=== PATIENT | female | born 1995 | race Caucasian/White ===

== ENCOUNTER → 2018-12-25 15:12 | Outpatient (CLI) | payer OTHER, SELFPAY ==
[2018-12-25 16:10] LABS: Add Manual Diff / Slide Review NO; Basophils Absolute Auto 0 /uL (0-100); Basophils Percent Auto 0.4 % (0-2); Eosinophils Absolute Auto 100 /uL (0-450); Eosinophils Percent Auto 0.8 % (2-4); Hematocrit 36.8 % (36-46); Hemoglobin 12.6 g/dL (12.0-16.0); Lymphocytes Absolute Auto 2000 /uL (1100-4500); Lymphocytes Percent Auto 19.3 % (25-40); Mean Corpuscular HGB Conc 34.2 % (30-36); Mean Corpuscular Hemoglobin 30.6 PG (26-34); Mean Corpuscular Volume 89.6 fL (80-100); Monocytes Absolute Auto 600 /uL (0-900); Monocytes Percent Auto 5.8 % (3-14); Neutrophils Absolute Auto 7600 /uL (1500-7000); Neutrophils Percent Auto 73.7 % (50-75); Platelet Count 255 X10^3/uL (150-400); Red Cell Distribution Width 12.7 % (11.6-14.8); White Blood Cell Count 10.3 X10^3/uL (4.5-11.0)
[2018-12-25 16:12] LABS: Appearance Urine UA CLEAR; Bilirubin Urine UA NEGATIVE (NEGATIVE); Color Urine UA YELLOW; Glucose Urine UA NEGATIVE (Negative); Ketones Urine UA NEGATIVE (NEGATIVE); Leukocyte Esterase Urine UA 1+ (NEGATIVE); Nitrite Urine UA NEGATIVE (Negative); Occult Blood Urine UA NEGATIVE (Negative); Protein Urine UA NEGATIVE (Negative); Urobilinogen Urine UA 0.2 E.U./dL (0.2)
[2018-12-25 16:31] LABS: Bacteria Urine None Seen; RBC Urine None Seen (0-5/HPF)
[2018-12-25 16:43] LABS: Culture Indicated Urine Specimen Cultured; Squamous Epithelial Cell Urine None Seen (0-5/HPF); WBC Urine 1-5/HPF (0-5/HPF)
[2018-12-25 19:06] LABS: HIV 1 and 2 Antibody NEGATIVE (NEGATIVE); Hep C Virus Ab w/Reflex Quant NEGATIVE s/c (NEGATIVE); Hepatitis B Surface Antigen NEGATIVE s/c (NEGATIVE)
[2018-12-28 23:04] LABS: RPR Screen Nonreactive (Nonreactive)
== END ==
PROVIDERS: PCP Family Medicine; Visit Provider Family Medicine
DX: Z34.91 Encounter for supervision of normal pregnancy, unspecified, first trimester (principal)
CPT/HCPCS: 36415; 80055; 81003; 81015; 86703; 86787; 86803; 86850; 86900; 86901; 87086

== ENCOUNTER → 2019-03-21 07:50 | Outpatient (CLI) | payer OTHER, SELFPAY ==
--- NOTE | 2019-03-21 07:52 | DI.US.S_ITS ---
PROCEDURE: US OB >= 14 WEEKS FETUS INDICATIONS: ANATOMIC SURVEY OUTSIDE/PRIOR DATING DATA: Last menstrual period (LMP): Unknown. LMP-based estimated date of delivery (PILY): N./A.. First dating scan (date and location): 03/21/19. Estimated date of delivery (PILY) from first dating scan: 08/05/19. TECHNIQUE: Real-time scanning was performed of the fetus, with image documentation and biometric measurements. Endovaginal scanning: No COMPARISON: None. FINDINGS: General: A single living intrauterine gestation is present. Presentation: Vertex. Placenta: Placental position is anterior, without previa. Amniotic fluid index: 11.1 cm, normal range is 5-24 cm. heart rate: 155 beats per minute. Maternal cervical canal: 3.2 cm long. Normal lower limit is 2.5 cm. biometrics: Biparietal diameter: 20 weeks 3 days Head circumference: 20 weeks 3 days Abdominal circumference: 20 weeks 2 days Femur length: 20 weeks 5 days Estimated gestational age from initial scan: not applicable. Composite gestational age from present scan: 20 weeks 3 days Estimated weight and percentile: 356 g Measurement variability for biometric dating: +/- 7 days from 14 weeks to 15 weeks 6 days gestation, +/- 10 days from 16 weeks to 21 weeks 6 days gestation, +/- 2 weeks from 22 weeks to 27 weeks 6 days gestation, +/- 3 weeks for 28 weeks gestation or later. weight reference: 4500 g or EFW >90/95% is considered macrosomia or large for gestational age. EFW <10% is small for gestational age. EFW 5% or less is considered intra-uterine growth restriction. Anatomic survey: Neuro: Ventricles are non-dilated at less than 10 mm. Cisterna magna is normal at 3-11 mm. Cerebellum is normal in size and morphology. Nuchal skin fold: Normal at less than 6 mm between 14-21 weeks gestational age. Face: Nose and lips, facial profile are normal. Spine: No evidence for spina bifida. Heart: 4-chambered heart is present, with normal ventricular outflow tracts. Diaphragm: Diaphragm is intact. Stomach: Left-sided stomach is present. Kidneys: No hydronephrosis. Normal is less than 5 mm in 2nd trimester, less than 7 mm in 3rd trimester. Cord: 3-vessel cord has orthotopic insertion. Bladder: Normal in size. Extremities: All 4 extremities identified. IMPRESSION: 1. Single living IUP redemonstrated with a mean composite gestational age of 20 weeks 3 days corresponding to ultrasound PILY 08/05/19. 2. Normal anatomic survey. Dictated by: Calixto [facility] Interpreted: Praful Mattson MD on 03/21/2019 at 11:35 Approved by: Praful Mattson M.D. on 03/21/2019 at 12:08
== END ==
PROVIDERS: PCP Family Medicine; Visit Provider Family Medicine
DX: Z34.02 Encounter for supervision of normal first pregnancy, second trimester (principal); Z3A.20 20 weeks gestation of pregnancy
CPT/HCPCS: 76811

== ENCOUNTER → 2019-07-16 14:46 | Outpatient (CLI) | payer OTHER, SELFPAY ==
[2019-07-17 16:56] LABS: Strep Grp B PCR NEG for Grp B Strep
== END ==
PROVIDERS: PCP Family Medicine; Visit Provider Family Medicine
DX: Z34.03 Encounter for supervision of normal first pregnancy, third trimester (principal); Z3A.36 36 weeks gestation of pregnancy
CPT/HCPCS: 87653

== ENCOUNTER 2019-07-21 23:59 | Outpatient (CLI) | payer OTHER, SELFPAY ==
--- NOTE | 2019-07-22 10:56 | P.TNLD_ITS ---
Visit Information Visit Information Date of evaluation: 07/22/19 Primary OB Provider: Mike Baker On-call OB Provider: Nancy Leyav Reason for Evaluation: Yes non-stress test Comments/Additional reasons for admission: This patient is a 23yo @38 weeks presenting with decreased movement for 2 days, with leakage of increased mucus. She denies VB or contractions, and denies any other symptoms or complaints. The patient reports movement returned to baseline on presentation to L&D. [facility] Medical History Acne (Chronic) Anxiety (Chronic) Hemorrhoid (Chronic) Surgical History [place] teeth removed (Resolved ~2014) Social History Smoking Status: Never smoker Review of Systems Constitutional Constitutional: Reports system reviewed and no additional complaints, except as documented Cardiovascular Cardiovascular: Reports system reviewed; no additional complaints, except as documented Respiratory Respiratory: Reports system reviewed and no additional complaints, except as documented Gastrointestinal Gastrointestinal: Reports system reviewed and no additional complaints, except as documented Genitourinary Genitourinary: Reports as per HPI Exam Vital Signs (past 8 hours): 126/72, HR 64 Evaluation Evaluation Baseline heart rate: 130 Variability: Average (6-10) monitor accelerations: Present monitor decelerations: Absent Category of Tracing: I Diagnosis, Plan/Disposition Final Diagnosis (1) Decreased movement: Current Visit: No Status: Acute Problem details: This patient presented with decreased movement, and had a cat 1, reassuring NST. She also reported to nursing staff that movement had returned to baseline, and that she could both feel and see movement on observation of her abdomen. Plan/Disposition Plan: Home with antepartum and labor precautions. OB Disposition: home
== END 2019-07-22 00:50 | disposition home or self-care (01) ==
LOC: OB 07-22 08:20
PROVIDERS: PCP Family Medicine; Visit Provider Obstetrics & Gynecology
DX: O36.8130 Decreased fetal movements, third trimester, not applicable or unspecified (principal); Z3A.37 37 weeks gestation of pregnancy
CPT/HCPCS: 59025; G0378; G0379

== ENCOUNTER 2019-07-31 23:55 | Inpatient (IN) | payer OTHER, SELFPAY ==
[2019-08-01] MEDS: LACTATED RINGERS 1,000 ML 999 ML IV (00:50)
[2019-08-01 01:19] LABS: Add Manual Diff / Slide Review NO; Basophils Absolute Auto 100 /uL (0-100); Basophils Percent Auto 0.4 % (0-2); Eosinophils Absolute Auto 0 /uL (0-450); Eosinophils Percent Auto 0.3 % (2-4); Hemoglobin 11.6 g/dL (12.0-16.0); Lymphocytes Absolute Auto 1900 /uL (1100-4500); Lymphocytes Percent Auto 12.4 % (25-40); Mean Corpuscular HGB Conc 35.1 % (30-36); Mean Corpuscular Hemoglobin 30.8 PG (26-34); Mean Corpuscular Volume 87.6 fL (80-100); Monocytes Absolute Auto 1100 /uL (0-900); Neutrophils Absolute Auto 12500 /uL (1500-7000); Neutrophils Percent Auto 79.9 % (50-75); Platelet Count 264 X10^3/uL (150-400); Red Blood Cell Count 3.77 X10^6/uL (4.0-5.2); Red Cell Distribution Width 13.2 % (11.6-14.8); White Blood Cell Count 15.6 X10^3/uL (4.5-11.0)
[2019-08-01] MEDS: LACTATED RINGERS 1,000 ML 125 ML IV ×2 (01:53→09:37)
[2019-08-01] MEDS: OXYTOCIN PREMIX 30 UNIT/500 ML PLAST..BAG IV (06:07)
--- NOTE | 2019-08-01 07:41 | PM.OBHP.1 ---
OB HPI History of Present Condition Chief complaint: EVALUATION OF LABOR : 1 Para: 0 Estimated Date of Delivery: 08/08/19 Estimated Gestational Age (weeks): Thirty Narrative: Rhina Clayton is a 24 year old female G1 para 0 estimated due date of 08/08/2019 presented to labor and delivery floor with uncomfortable contractions at approximately 11:30 p.m.. On arrival to the labor and delivery for. Patient had normal vital signs blood pressure. She was placed on the monitor. She was [place] regularly every 3-4 minutes. Moderate intensity. Cervical exam done by the nurse so she was dilated to 3-4 cm 90% S effaced. Baby had a category 1 tracing. Patient's contractions became more and more uncomfortable and patient requested an epidural which was provided with good anesthetic results. Before she came into the labor and delivery for. Patient had no leaking of fluids no fever. And was feeling well. History of Present care: good care Dating criteria: LMP confirmed by 1st trimester US Ultrasounds: normal 1st trimester US Obstetrical complications: none Medical complications: none Preadmission Labs Blood type: B (+) positive -: Antibody screen: negative, Cystic fibrosis screen: unknown, GBS status: negative, HBsAG: negative, HIV: negative, HSV 1: negative, HSV 2: negative and RPR/VDLR: negative -: Chlamydia screen: not detected and Gonorrhea screen: not detected -: Rubella: immune and Varicella: immune PAP: Normal Integrated screen: Patient declined genetic screening Urine: Within normal limits Narrative: Patient did not do glucose screening Evaluation Evaluation Laboratory results: Laboratory Tests 08/01/19 08/01/19 00:45 00:45 WBC 15.6 H RBC 3.77 L Hgb 11.6 L Hct 33.0 L MCV 87.6 MCH 30.8 MCHC 35.1 RDW 13.2 Plt Count 264 Neut % (Auto) 79.9 H Lymph % (Auto) 12.4 L [place] % (Auto) 7.0 Eos % (Auto) 0.3 L Baso % (Auto) 0.4 Neut # (Auto) 89888 H Lymph # (Auto) 1900 [place] # (Auto) 1100 H Eos # (Auto) 0 Baso # (Auto) 100 Blood Type B Positive Antibody Screen Negative [facility] Medical History Acne (Chronic) Anxiety (Chronic) Hemorrhoid (Chronic) Surgical History [place] teeth removed (Resolved ~2014) Social History Smoking Status: Never smoker Meds Home Medications and Allergies Home Medications Medication Instructions Recorded Confirmed Type prenat.vits,tacho,old-baot-hejkw 1 tab PO DAILY 12/25/18 08/01/19 History Allergies Allergy/AdvReac Type Severity Reaction Status Date / Time No Known Drug Allergies Allergy Verified 08/01/19 01:19 Exam Narrative Exam Narrative: . General: Alert no apparent distress. Affect is appropriate. [place] it is uncomfortable. HEENT: Neck is supple without lymphadenopathy pupils equal round and reactive. Cardio: S1-S2 regular rate and rhythm. Respiratory: Lungs clear to auscultation. Abdomen: Gravid. Extremities: Normal deep tendon reflexes trace edema. Cervical exam 4 cm 90% 0 station mid position amniotomy of clear fluid. IUPC catheter placed without difficulty. [place]: Contractions q.2 minutes heart tones: Category 1 tracing Objective Labs Result Diagrams: 08/01/19 00:45 Labs: Laboratory Results - last 24 hr 08/01/19 08/01/19 00:45 00:45 WBC 15.6 H RBC 3.77 L Hgb 11.6 L Hct 33.0 L MCV 87.6 MCH 30.8 MCHC 35.1 RDW 13.2 Plt Count 264 Neut % (Auto) 79.9 H Lymph % (Auto) 12.4 L [place] % (Auto) 7.0 Eos % (Auto) 0.3 L Baso % (Auto) 0.4 Neut # (Auto) 98900 H Lymph # (Auto) 1900 [place] # (Auto) 1100 H Eos # (Auto) 0 Baso # (Auto) 100 Blood Type B Positive Antibody Screen Negative Assessment and Plan Assessment and Plan Assessment and Plan narrative: 24-year-old G1 para 0 at 39 weeks gestational age in active labor. Patient is doing well. OB admission orders are written for. Patient has IV in place epidural in place hemoglobin hematocrit and platelet count are normal other than mildly elevated white blood cell count. Patient is afebrile. Patient had amniotomy of clear fluid and IUPC placed. Did discuss labor care floor reviewed consents and risks benefits of labor. And routine labor orders were written for. Expectant management.
[2019-08-01] MEDS: ONDANSETRON 4 MG/2 ML INJ (08:45)
--- NOTE | 2019-08-01 12:36 | PM.PROC.1 ---
Procedures Date/Time Date of procedure: 08/01/19 Time of procedure: 12:36 General Procedure description: 24-year-old G1 now para 1 39 + weeks gestational age with routine care without complications comes into the labor and delivery floor and labor. Stage I of labor: Approximately 10 hours. During stage I of labor. Patient had regular contractions. Patient had epidural provided for comfort. Patient on arrival was 3 cm. After epidural and providing comfort. Patient was able to sleep. On re-examination after epidural a number of hours after arrival there was no cervical change despite adequate contractions. She then had amniotomy of clear fluid. She had placement of an IUPC be as well as we started Pitocin and we are having a hard time picking up contractions. After amniotomy patient was 4 cm 90% effaced 0 station. The she had rapid progression from 4 cm to complete over the next hour. She got up to 2 units of Pitocin. Which was stopped about an hour after was started. Due to adequate contractions. Patient's epidural provided good and is static results. Stage II of labor: Approximately 2 hours. Patient did well with pushing and had good progression in descent of the baby's head through the canal from 0 to the complete. As she progressed of heart tones category 1 full category 1 to category 2. She was given oxygen. And mom and baby were making good descent and heart rate went back up to normal heart rate with some decelerations and reactive strip. At the perineum and position. Baby was there for a number of minutes. A VAC after discussion with the patient father was applied. Vacuum was applied with pushing for 2 pop offs. After the 2nd pop-off the VAC was not reapplied. Shortly afterwards mom delivered viable male in vertex position occiput posterior. At the delivery of the head there was a loose nuchal cord which was reduced around the baby's head without difficulty and delivery of shoulders and body. Baby was placed on the mother's abdomen. Delayed cord camping. Baby had spontaneous vigorous cry tone color inactivity. Stage III of labor: Delivery of intact placenta with three-vessel cord. On expression of the vagina. Patient had a midline second-degree vaginal laceration that was repaired in the usual fashion with 2 0 chromic suture with lidocaine. Patient tolerated the procedure well. Afterwards mom and baby were resting comfortably Apgars were 9 and 9.
[2019-08-01] MEDS: LANOLIN OINT 7 GM 1 APPLIC TOP (14:12)
[2019-08-01] MEDS: DERMOPLAST SPRAY 20% 60 ML 1 SPRAY TOP (14:13)
[2019-08-01] MEDS: IBUPROFEN 600 MG TABLET PO (14:16)
[2019-08-02] MEDS: IBUPROFEN 600 MG TABLET PO ×2 (03:54→10:11)
[2019-08-02 07:08] LABS: Hematocrit 27.5 % (36-46); Hemoglobin 9.6 g/dL (12.0-16.0)
--- NOTE | 2019-08-02 08:47 | PM.DS.1 ---
History of Present Illness History of Present Illness Chief complaint: maternity Discharge Providers Provider Date of admission: 07/31/19 23:55 Discharge Date: 08/02/19 Primary care physician: Mike Baker MD Consults: 08/01/19 01:17 Consult to Anesthesiology Routine Comment: Consulting Provider: Wilder Anderson Reason for consultation: Labor pain management Has provider been notified: Yes 08/02/19 05:09 Consult to [employer] Routine Comment: Discharge provider: Mike Baker MD Summary Hospital Course Discharge Diagnosis: 24-year-old G1 para 1 status post Delivery of viable male Apgars 9 and 9 Routine care Hospital Course: Patient admitted to the hospital. In labor. Progressed nicely through labor and had delivery of viable male infant. Postoperative day 1 she was doing well with pain she was ambulating eating. She had been up to the shower. Patient had no difficulty with with breast-feeding. Patient had no difficulty with urination no bowel movement at the time of discharge. Bleeding as was expected. Vital signs were stable patient was afebrile. Exam Narrative Exam Narrative: . General: Alert no apparent distress. Affect is appropriate. [place] it is uncomfortable. HEENT: Neck is supple without lymphadenopathy pupils equal round and reactive. Cardio: S1-S2 regular rate and rhythm. Respiratory: Lungs clear to auscultation. Abdomen: Uterus firm. Extremities: Normal deep tendon reflexes trace edema. Objective Labs Result Diagrams: 08/02/19 06:48 Labs: Laboratory Results - last 24 hr 08/02/19 06:48 Hgb 9.6 L Hct 27.5 L Discharge Plan Discharge Plan Patient Disposition: Home Discharge orders & Medications Prescriptions: New hydrocodone-acetaminophen 5-325 mg Tablet 1 tab PO Q4HR PRN (Reason: Pain, Moderate (4-6)) Qty: 20 RF: 0 docusate sodium [DOK] 100 mg Capsule 100 mg PO BID Qty: 30 RF: 0 ibuprofen 600 mg Tablet 600 mg PO Q6HR PRN (Reason: Pain, Mild (1-3)) Qty: 30 RF: 0 Continued prenat.vits,tacho,efx-dehm-mwozy tablet 1 tab PO DAILY RF: 0 Follow up/Referrals: Mike Baker MD [Primary Care Provider] - Visit Report/Discharge Packet Visit Report Forms: Patient Portal/API, Stroke Signs & Symptoms Discharge Data Primary Care Provider: Mike Baker
[2019-08-02] MEDS: LANOLIN OINT 7 GM 1 APPLIC TOP (10:11)
[2019-08-02] MEDS: DOCUSATE 100 MG CAPSULE PO (10:11)
[2019-08-02] MEDS: PRENATAL VIT,CALC/IRON/FOLIC 1 TABLET 1 TAB PO (10:11)
== END 2019-08-02 12:09 | disposition home or self-care (01) | DRG 807 ==
PROVIDERS: Admitting Provider Family Medicine; PCP Family Medicine; Visit Provider Family Medicine
DX: O70.1 Second degree perineal laceration during delivery (principal); Z37.0 Single live birth; Z3A.39 39 weeks gestation of pregnancy; O69.81X0 Labor and delivery complicated by cord around neck, without compression, not applicable or unspecified
CPT/HCPCS: 01967; 36415; 59050; 59400; 85014; 85018; 85025; 86850; 86900; 86901; G0379; J2405; J2590